=== PATIENT | male | born 1980 | race Caucasian/White ===

== ENCOUNTER 2017-01-26 16:36 | Emergency (ER) | payer SELFPAY ==
[~2017-01-26] VITALS: Ht 182.9 cm; Wt 76.0 kg
[2017-01-26 16:37] VITALS: BP 137/74; PULSE 70; RESP 20; TEMP 98.8; O2SAT 98
--- NOTE | 2017-01-26 16:45 | PD ---
HPI . right eye redness and irritation x 5-6 days Chief Complaint: Eye Problems/Injury Time Seen by Provider: 16:45 Travel History International Travel<30 days: No Contact w/Intl Traveler<30days: No Traveled to known affect area: No History of Present Illness HPI 36 yr old male with no PMH here with c/o right eye redness and irritation x 5-6 days. He tells me it initially started off as a pain when something went into his eyes. He says it then went away, but his eye has remained irritated and red for the past several days. He says he feels like he may have another corneal abrasion as he has had one in the past. He says he doesn't really think anything is in there as he has flushed his eye several times and used a lot of Visine. He admits to blurry vision due to inability to fully open his eye. He denies any headache or other symptoms. PFSH Past Medical History Medical History: Denies Significant Hx Past Surgical History Abdominal Surgery: Yes (hernia) Social History Tobacco Use: Yes Substance Use: No Allergies-Medications (Allergen,Severity, Reaction): Coded Allergies: No Known Allergies (Unverified , 01/26/17) Reported Meds & Prescriptions Reported Meds & Active Scripts Active Ocuflox Opth Drops (Ofloxacin Opth Drops) 0.3 % Drops 1 Drop RIGHT EYE Q6HR 5 Days Review of Systems General / Constitutional: No: Fever Eyes: Positive: Redness, Tearing, No: Visual changes HENT: No: Headaches Cardiovascular: No: Chest Pain or Discomfort Respiratory: No: Shortness of Breath Gastrointestinal: No: Abdominal Pain Genitourinary: No: Dysuria Musculoskeletal: No: Pain Skin: No Rash Neurologic: No: Weakness Psychiatric: No: Depression Endocrine: No: Polydipsia Hematologic/Lymphatic: No: Easy Bruising Physical Exam Narrative GENERAL: AAO x 3, no acute distress, Well-nourished, well-developed patient. SKIN: Warm and dry. No visible rashes or bruising. HEAD: Normocephalic and atraumatic. EYES: No scleral icterus. No injection or drainage. EOM intact, PERRLA. Right eye with erythema and no warm body visualized on examination. Eyelid everted and no foreign body seen. There was a small corneal abrasion under fluorescein staining ENT: No nasal drainage noted. Mucous membranes pink. Airway patent. NECK: Supple, trachea midline. No JVD. CARDIOVASCULAR: Regular rate and rhythm without murmurs, gallops, or rubs. RESPIRATORY: Breath sounds equal bilaterally. No accessory muscle use. No rhonchi or rales. GASTROINTESTINAL: visual inspection normal EXTREMITIES: No cyanosis or edema. BACK: Nontender without obvious deformity. No CVA tenderness. PSYCH: AAO x 3, normal affect. Data Data Last Documented VS Vital Signs Date Time Temp Pulse Resp B/P Pulse Ox O2 Delivery O2 Flow Rate FiO2 01/26/17 16:37 98.8 70 20 137/74 98 Room Air MDM Medical Decision Making Medical Screen Exam Complete: Yes Emergency Medical Condition: Yes Medical Record Reviewed: Yes Differential Diagnosis conjunctivitis, corneal abrasion, less likely retinal detachment Narrative Course This is a 36-year-old male here with complaint of right eye redness and irritation for 5-6 days. A an eye examination was done and there is a corneal abrasion on the right eye. I recommend a course of antibiotics. I explained to him that he will need follow-up with a gas desulfurizer. I have provided him with the name of one. Patient verbalized understanding of instructions, questions were answered, and thanked me for their care. I advised them if their condition worsens, please return to the nearest emergency room for further care. Diagnosis Primary Impression: Corneal abrasion Qualified Code: S05.01XA - Corneal abrasion, right, initial encounter Referrals: Wanda Sloan MD Patient Instructions: General Instructions Additional Instructions: Please see an gas desulfurizer in the next 2-3 days. I have provided some information for a local doctor as you requested. If you develop any sudden onset of eye pain or vision loss, go to the nearest emergency department. Take medications as prescribed. Med/Other Pt SpecificInfo: Prescription(s) given Scripts Ofloxacin Opth Drops (Ocuflox Opth Drops)0.3 % Drops1 Drop RIGHT EYE Q6HR 5 Days Ref 0 Prov:Viola Bean DO 01/26/17 Disposition: 01 DISCHARGE HOME Condition: Stable Alicia Moore January 26, 2017 16:45
[2017-01-26] MEDS ORDERED: OCUF0.3D RIGHT EYE (16:52)
== END 2017-01-26 17:12 | disposition home or self-care (01) ==
LOC: NEPK 16:36
DX: S05.01XA Injury of conjunctiva and corneal abrasion without foreign body, right eye, initial encounter (principal); X58.XXXA Exposure to other specified factors, initial encounter
CPT/HCPCS: 99283